=== PATIENT | female | born 1960 | race Caucasian/White ===

== ENCOUNTER → 2018-07-21 | Outpatient (CLI) | payer BC ==
--- NOTE | 2018-07-21 13:01 | KCIC ---
Examination: Ultrasound pelvis limited HISTORY: History of recent oophorectomy by laparoscopy COMPARISON: None available Findings/ impression: Ultrasound of the lower abdomen wall in the region of the pelvis demonstrates a 4.2 x 2.4 x1.0 cm echogenic fluid collection without vascular flow within and a 3.9 x 0.7 x 0.9 cm echogenic fluid collection to the left of the midline without vascular flow within probably hematomas or complex seromas. Follow-up to resolution. Electronically signed by: Edmar Medina MD (07/21/2018 12:58 PM) [place] [id number]
== END | disposition home or self-care (01) ==
LOC: KCIC US 11:57
PROVIDERS: ATTEND Obstetrics & Gynecology
DX: R19.00 Intra-abdominal and pelvic swelling, mass and lump, unspecified site (principal)
CPT/HCPCS: 76857